=== PATIENT | female | born 1975 | race Caucasian/White ===

== ENCOUNTER 2021-03-15 12:38 | Emergency (ER) | payer OTHER, SELFPAY ==
[2021-03-15 13:05] VITALS: BP 128/95; PULSE 95; RESP 17; TEMP 36.1; O2SAT 100
== END 2021-03-15 13:13 | disposition left against medical advice (07) ==
LOC: ANHED 15:20
DX: R04.0 Epistaxis (principal)
CPT/HCPCS: 99199